=== PATIENT | male | born 2000 | race Caucasian/White ===

== ENCOUNTER 2022-03-15 12:21 | Emergency (ER) | payer OTHER ==
[2022-03-15 12:32] VITALS: BP 112/71; PULSE 79; RESP 16; TEMP 98.7; BMI 32.5
[2022-03-15] MEDS ORDERED: DIPHTH,PERTUSS(ACELL),TET 0.5 ML DISP.SYRIN IM ONE ×2 (12:54→12:59)
[2022-03-15] MEDS ORDERED: ceFAZolin 2 GRAM PREMIX BAG IVPB ONE (13:33)
[2022-03-15] MEDS ORDERED: LIDOCAINE HCL/EPINEPHRINE/PF 20 ML VIAL ONE (14:12)
[2022-03-15] MEDS ORDERED: LIDOCAINE HCL 1%, 10 MG/ML (20ML VIAL) ONE (15:38)
== END 2022-03-15 16:29 | disposition home or self-care (01) ==
LOC: FER 12:21
PROC: 3E0234Z Introduction of Serum, Toxoid and Vaccine into Muscle, Percutaneous Approach (ICD-10-PCS; principal; 2022-03-15)
PROC: 3E02329 Introduction of Other Anti-infective into Muscle, Percutaneous Approach (ICD-10-PCS; 2022-03-15)
DX: S68.623A Partial traumatic transphalangeal amputation of left middle finger, initial encounter (principal)
CPT/HCPCS: 73140-TC-LT-FY; 90715; 99284-25